=== PATIENT | female | born 1990 | race Caucasian/White ===

== ENCOUNTER 2018-03-19 13:14 | Inpatient (IN) | payer BC ==
[~2018-03-19 13:14] MED LIST: Buffered Lidocaine 0.9% SYRIN* 5 ML/SYR SYRINGE INTRADERM ONE; Dexamethasone IV* 4 MG/ML 1 ML (4 MG) ONE; DiMENhydriNATE IV* 50 MG/ML VIAL ONE; Famotidine IV* 10 MG/ML 2 ML (20 mg) IV ONE; Ketorolac INJ* 30 MG/ML 1 ML VIAL ONE; Lactated Ringers 1000 ML Bag* 1,000 ML IV SCH; Midazolam* 1 MG/ML 5 ML VIAL (5 MG) ONE; Ondansetron INJ* 2 MG/ML VIAL ONE; Propofol* 10 MG/ML 20 ML BTL ONE; Succinylcholine* 20 MG/ML 10 ML VIAL ONE; fentaNYL* 50 MCG/ML 2 ML VIAL (100 MCG VIAL) ONE
--- OUTSIDE RECORDS SUMMARY | 2018-03-19 13:20 | XMS REPORT | Continuity of Care Document ---
:1990 Author Organization [facility] Care Team Providers Name Role Phone NAZARIO CONCEPCION Admitting Physician NAZARIO CONCEPCION Attending Physician Allergies and Intolerances No Known Allergies Medications RxNorm Medication Dose Route Instructions Start End Status Date Date 815802 1 ML ustekinumab 90 mg subcutaneous subcutaneously Active 90 MG/ML every 3 months Prefilled Syringe 415255 atorvastatin 40 40 mg oral orally every day Active MG Oral Tablet 861260 Benazepril 10 mg oral orally every day Active hydrochloride 10 MG Oral Tablet 661804 clopidogrel 75 MG 75 mg oral orally every day Active Oral Tablet 6404 Linseed Oil 1000 mg oral orally every day Active metoprolol 6.25mg oral orally every day Active Vitamin E Oral 100 unit oral orally every day Active Problems Code Code System Problem Name Start Date End Date Status 382933239586945 SNOMED-CT Light tobacco smoker 01/07/2016 Completed 977859870 SNOMED-CT Right sided chest pain 01/07/2016 Active 887872910 SNOMED-CT Dizziness 01/07/2016 Active 556477876 SNOMED-CT Poor hypertension control 01/07/2016 Active 60064215 SNOMED-CT Elevated liver function 01/07/2016 Active 924474867 SNOMED-CT Morbid obesity 01/07/2016 Active 566634252 SNOMED-CT Acute coronary syndrome 2015 Active 880354117 SNOMED-CT Stented coronary artery 2015 Active Stenting of RCA 2015 Active 23467493 SNOMED-CT Hypercholesterolemia 2014 Active Chronic elevation of right 2014 Active hemidiaphragm Major depression with self 2008 Active mutilation (cutting) 7459824 SNOMED-CT Psoriasis 1996 Active 24471644 SNOMED-CT Hypertensive disorder U Active 15576780 SNOMED-CT Benign hypertension U Active 009865028998022 SNOMED-CT Light tobacco smoker U Active 312473624 SNOMED-CT Plaque psoriasis U Active 037963719 SNOMED-CT Dyslipidemia U Active Procedures Code Code System Procedure Date 175604227 SNOMED CT Tonsillectomy (Tonsillectomy) 2001 STENT 02/2015 Results Microbiology Results w Susceptibilities Order: CULTURE WOUND- TISSUE-DRAINAGE Specimen Source: Abscess Body Site: Entire back (surface region)Direct Exam:Rare [id number] Gram positive cocci in [id number] Observations:MRSA screen test [id number] #1:1Staphylococcus aureus MRSA (Many)Susceptibility: LOINC Code Drug Interpretation Result Date 383-0 1Oxacillin R >=4 02/28/2018 12:40:00 PM 233-7 1Erythromycin R >=8 02/28/2018 12:40:00 PM 193-3 1Clindamycin SS <=0.25 02/28/2018 12:40:00 PM 524-9 1Vancomycin SS 1 02/28/2018 12:40:00 PM 496-0 1Tetracycline SS <=1 02/28/2018 12:40:00 PM 428-3 1Rifampicin SS <=0.5 02/28/2018 12:40:00 PM 516-5 1Trimethoprim/Sulfa SS <=10 02/28/2018 12:40:00 methoxazole PM Notes: 1If rifampin is used for treatment it must be combined with another antibiotic. 1Resistance develops rapidly when used alone. Please consult with Pharmacy for 1treatment options. 1Organisms that are susceptible to tetracycline are also susceptible to 1doxycycline and minocycline. Performing Lab Footnotes:[facility] - [id number] - [address] [place] [address] MAHENDRA REYEZ Social History Code Code System Social History Description Dates Observed Observation 307459052 SNOMED CT Current Smoking Unknown if ever Status smoked UNK AdministrativeGender Sex Assigned At Unknown Vital Signs No data in the system Goals Section No data in the system Health Concerns No data in the systemEncounter Diagnosis Date Code Code System Diagnosis Status L02.222 ICD10 FURUNCLE BACK ANY PRT EXCPT BUTTOCK Active Advance Directives PT STATES NO ADVANCE DIRECTIVES Directive Type Effective Date Software Systems Engineer Notes Supporting Document Name Address Phone No Directive Type 01/07/2016 Not Specified Not Specified Not Specified None No specified 10:11:15 PM *RHIO - CONSENT IS YES Directive Type Effective Date Software Systems Engineer Notes Supporting Document Name Address Phone No Directive Type 01/27/2015 Not Specified Not Specified Not Specified None No specified 10:47:37 AM Family History Patient has no knowledge of family history Functional Status No data in the system Immunizations Vaccine Code Code System Vaccine Name Date Status 150 CVX Influenza, injectable, 01/08/2016 Not given (patient quadrivalent, preservative objection) free Medical Equipment Implants Implanted Date Implant Site DEMETRA 02/15/2015 stent placement heart Mental Status No data in the system Assessment and Plan Assessments No data in the systemPlan Of Treatment No data in the systemPending Tests No data in the system Hospital Discharge Instructions No data in the system Reason for Visit No data in the system
--- OUTSIDE RECORDS SUMMARY | 2018-03-19 13:20 | XMS REPORT | Continuity of Care Document ---
:1990 External Reference #:[id number] Author Name RYDER Bales Address [address] [place] [address], [address] [place] [address] Care Team Providers Name Role Phone Fan Davis M.D. Care Team Information Block Cuber Unavailable Payers Type Date Identification Numbers Payment Provider Subscriber Policy Number: [id number] [facility] Marizol Richard PayID: [id number] [address] [address] [place] [address] Effective: 2015 Policy Number: [id number] [facility] Marizol Richard Expires: 2017 PayID: [id number] [address] [place] [address] Effective: 2004 Policy Number: [id number] [place] Plan Willy Hilary Expires: 2015 PayID: [id number] [address] [place] [address] Advance Directives Description No Information Available Problems Date Description Provider Status Onset: 03/07/2010 Benign essential hypertension Fan Davis M.D. Active Onset: 03/07/2010 Mixed hyperlipidemia Fan Davis M.D. Active Onset: 02/26/2018 Carbuncle of trunk RYDER Bales Active Onset: 01/24/2015 Essential hypertension Fan Davis M.D. Active Family History Date Family Member(s) Problem(s) Comments Father Coronary Artery Disease (CAD) Father Elevated Liver Enzymes Father defibrillator Mother Hypothyroidism Mother Non Insulin Dependent Diabetes Mother Caleb First Brother Hypercholesterolemia First Brother Asthma Social History Type Date Description Comments Sex Unknown Lives With mother and father Occupation cafeteria cashier/student Tobacco Use Start: Unknown Never Smoked Cigarettes ETOH Use Denies alcohol use Recreational Drug Use Denies Drug Use Tobacco Use Start: Unknown End: Unknown Patient is a former smoker Smoking Status Reviewed: 02/26/18 Patient is a former smoker Allergies, Adverse Reactions, Alerts Description No Known Drug Allergies Medications Medication Date Status Form Strength Qnty SIG Indications Ordering Provider Nitroglycerin 12/02 Active Tablets 0.4mg 25tabs 1 Sub sublingual Cristian, q5mins as RN, [employer] needed Clindamycin HCL 12/02 Active Capsules 300mg 30caps 1 by mouth L02.222 3 times Wood, ANP per day x 10 days Hydrochlorothiazi 05/04 Active Tablets 25mg 30tabs 1 by mouth R60.0 every day yakelin Davis M.D. swelling Vitamin E Active Unknown Flax Seed Oil Active Unknown Stelara Active Soln Lad[place], Prefill Lavell Schmidt M.D. Benazepril HCL Active Tablets 20mg 30tabs 1 by mouth I10 every day KEISHA Foster, [employer] Aspir-81 Active Tablets 81mg [address] every day Metoprolol Active Tablets 25mg take one Unknown Tartrate half tablet by mouth once a day Prednisone 05/11 Hx Tablets 50mg 5tabs take one M79.672 Toby tablet by C. - mouth once rvey, 05/17 daily for 5 days Prednisone 09/29 Hx Tablets 20mg 10tabs 2 by mouth M65.271 every day Cristian, - x 5days RN, [employer] 03/06 take the morning Benzonatate 09/12 Hx Capsules 100mg 45caps 1 by mouth J06.9 three Davis, - times a M.D. 03/06 day needed cough Azithromycin 01/27 Hx Tablets 250mg 6tabs 2 tabs by J20.9 mouth on Davis, - day 1, M.D. 03/16 then 1 by /2014 mouth everyday on days 2-5 Dulera 01/27 Hx Aerosol 100-5mcg/ sample use 2 J20.9 Act inhalation Ryan, - s orally M.D. 03/16 twice daily Hydromet 01/21 Hx Syrup 5-1.5mg/5 120unit 1 tsp. at R05 Yarely ML s bedtime as Chekastephenky - needed for , [employer] 03/16 cough ref. /2014 #[id number] Atorvastatin 05/17 Hx Tablets 40mg 90tabs 1 by mouth E78.2 Fan Calcium /2014 every day Ori Davis M.D. 05/04 Azithromycin 05/17 Hx Tablets 250mg 6tabs 2 tabs by 461.9 mouth on Ryan, - day 1Jaret 01/21 then 1 by mouth everyday on days 2-5 Atorvastatin 03/09 Hx Tablets 80mg 30tabs 1 by mouth 272.2 Felicitas Calcium /2013 every day Kuhfta, - at bedtime RN [facility] 05/17 Benazepril HCL 02/04 Hx Tablets 5mg 90tabs 1 by mouth I10 every day Ori Davis M.D. 03/16 Azithromycin 02/20 Hx Tablets 250mg 6tabs 2 tabs po 466.0 Fan on day 1, Ori Davis 1 po M.DDc 03/07 qday days 2-5 Benazepril HCL 02/20 Hx Tablets 20mg 30tabs 1 po qd 401.1 Fan Ori Davis M.D. 02/04 Amlodipine 02/20 Hx Tablets 5mg 30tabs 1 po qd 401.1 Fan Ori Davis M.D. 02/04 Ciprofloxacin HCL 10/19 Hx Tablets 500mg 6tabs 1 po bid 599.0 Fan Ori Davis M.D. 11/17 Amoxicillin 05/13 Hx Tablets 875mg 20tabs 1 po bid 461.9 Donald Watts Ori Montenegro M.D. 05/23 Ursodiol 02/06 Hx Capsules 300mg 60caps 1 po bid Afn Ori Davis M.D. 05/13 Clopidogrel 00 Hx Tablets 75mg 1 by mouth Unknown Bisulfate /0000 every day - 05/04 Nitrostat 00 Hx Tablets 0.4mg 1 Unknown /0000 Sub sublingual - q5mins as 12/02 Immunizations CPT Code Status Date Vaccine Lot # [id number] Given 06/19/2017 Flucelvax Quad, 0.5mL, [facility] [id number] Q2037 Given 03/06/2016 Fluvirin 0.5 ML,[facility] 12815-419-40 [id number] Vital Signs Date Vital Result Comment 02/26/2018 1:13pm Weight 267.00 lb BP Systolic 140 mmHg BP Diastolic 88 mmHg Heart Rate 76 /min 12/03/2017 12:16pm Weight 261.44 lb BP Systolic 130 mmHg BP Diastolic 88 mmHg Body Temperature 99.2 F Heart Rate 84 /min 12/02/2017 2:47pm Weight 262.00 lb BP Systolic 192 mmHg BP Diastolic 110 mmHg BP Systolic Recheck 160 mmHg BP Diastolic Recheck 100 mmHg Body Temperature 98.8 F Heart Rate 76 /min Respiratory Rate 18 /min 08/10/2016 9:19am BP Systolic 148 mmHg BP Diastolic 88 mmHg Heart Rate 76 /min Pain Level 8 08/01/2016 1:34pm BP Systolic 170 mmHg BP Diastolic 100 mmHg Heart Rate 60 /min Pain Level 8 05/18/2016 9:47am Weight 280.00 lb Height 66.5 inches 5'6.50" BP Systolic 138 mmHg BP Diastolic 78 mmHg Heart Rate 76 /min Respiratory Rate 18 /min BMI (Body Mass Index) 44.5 kg/m2 05/04/2016 2:20pm Weight 280.00 lb Height 66.5 inches 5'6.50" BP Systolic 160 mmHg BP Diastolic 100 mmHg Heart Rate 90 /min BMI (Body Mass Index) 44.5 kg/m2 03/06/2016 10:06am Weight 275.00 lb Height 66.5 inches 5'6.50" BP Systolic 122 mmHg BP Diastolic 80 mmHg Heart Rate 84 /min BMI (Body Mass Index) 43.7 kg/m2 09/30/2015 1:40pm Weight 256.00 lb Height 66.5 inches 5'6.50" BP Systolic 130 mmHg BP Diastolic 80 mmHg Body Temperature 97.9 F Heart Rate 70 /min O2 % BldC Oximetry 97 % Respiratory Rate 18 /min BMI (Body Mass Index) 40.7 kg/m2 09/13/2015 3:06pm Weight 253.00 lb Height 66.5 inches 5'6.50" BP Systolic 140 mmHg BP Diastolic 94 mmHg Heart Rate 104 /min O2 % BldC Oximetry 98 % BMI (Body Mass Index) 40.2 kg/m2 03/24/2015 10:16am Weight 250.00 lb Height 66.5 inches 5'6.50" BP Systolic 130 mmHg BP Diastolic 70 mmHg Heart Rate 76 /min BMI (Body Mass Index) 39.7 kg/m2 03/16/2015 10:32am Weight 251.50 lb Height 66.5 inches 5'6.50" BP Systolic 138 mmHg BP Diastolic 92 mmHg Body Temperature 98.0 F Heart Rate 99 /min O2 % BldC Oximetry 98 % Respiratory Rate 16 /min BMI (Body Mass Index) 40.0 kg/m2 01/27/2015 4:28pm Weight 255.00 lb Height 66.5 inches 5'6.50" BP Systolic 142 mmHg BP Diastolic 94 mmHg Body Temperature 98.0 F Heart Rate 84 /min O2 % BldC Oximetry 98 % Respiratory Rate 16 /min BMI (Body Mass Index) 40.5 kg/m2 01/21/2015 9:48am Weight 257.50 lb Height 66.5 inches 5'6.50" BP Systolic 152 mmHg BP Diastolic 94 mmHg Body Temperature 98.1 F Heart Rate 88 /min BMI (Body Mass Index) 40.9 kg/m2 05/17/2014 1:38pm Weight 251.00 lb Height 66.5 inches 5'6.50" BP Systolic 112 mmHg BP Diastolic 74 mmHg Body Temperature 98.8 F Heart Rate 70 /min BMI (Body Mass Index) 39.9 kg/m2 03/09/2014 9:27am Weight 252.00 lb Height 66.5 inches 5'6.50" BP Systolic 154 mmHg BP Diastolic 90 mmHg BP Systolic Recheck 140 mmHg BP Diastolic Recheck 82 mmHg Heart Rate 76 /min BMI (Body Mass Index) 40.1 kg/m2 02/04/2014 1:47pm Weight 254.00 lb Height 66.5 inches 5'6.50" BP Systolic 138 mmHg BP Diastolic 82 mmHg Heart Rate 84 /min BMI (Body Mass Index) 40.4 kg/m2 03/07/2010 1:05pm Weight 234.50 lb Height 66.5 inches 5'6.50" BP Systolic 122 mmHg BP Diastolic 84 mmHg Heart Rate 68 /min BMI (Body Mass Index) 37.3 kg/m2 02/20/2010 2:20pm Weight 236.00 lb BP Systolic 170 mmHg BP Diastolic 110 mmHg Body Temperature 98.1 F Heart Rate 80 /min 10/19/2009 1:31pm Weight 230.50 lb BP Systolic 132 mmHg BP Diastolic 90 mmHg Heart Rate 68 /min 05/13/2009 3:23pm Weight 246.00 lb BP Systolic 160 mmHg BP Diastolic 104 mmHg Body Temperature 98.5 F Heart Rate 80 /min 02/04/2009 3:15pm Weight 237.25 lb Height 66.5 inches 5'6.50" BP Systolic 154 mmHg BP Diastolic 90 mmHg Heart Rate 64 /min BMI (Body Mass Index) 37.7 kg/m2 Results Test Date Facility Test Result H/L Range Note Muna 08/10/2016 [facility] Muna NEGATIVE Negative [address] [place] [address] [phone] Muna Methodology Test Substrate: <SEE NOTE> 1 Rheumatoid 08/10/2016 [facility] Rheumatoid NEGATIVE Negative [facility] [address] [place] [address] [place] [address] [phone] RF Methodology Methodology: Lat <SEE NOTE> 2 Laboratory test 08/10/2016 [facility] Sedrate Esr 10.0 mm/hr 0.0-20.0 finding [address] [place] [address] [phone] Uric Acid 5.8 mg/dL 2.6-7.2 03/06/2016 [facility] Serum NEGATIVE Test-Serum [address] [facility] Test [place], [place] [id number] [phone] Pregs Methodology Detection Level: <SEE NOTE> 3 Thy (TSH And Free 03/06/2016 [facility] TSH 3.54 uIU/mL 0.34-4.82 T4) [address] [place] [address] [phone] T4 - Free 0.85 ng/dL 0.77-1.60 Laboratory test 02/08/2014 [facility] eGFR (Female) 111 > 59 4 finding [address] [id number] [phone] Comp. Metabolic 02/08/2014 [facility] Glucose 97.5 mg/dL 65 -[address] [address] [phone] BUN 9.5 mg/dL 7-21 Co2 28.0 mmol/L 22-30 Sodium 141 mmol/L 137-145 Potassium 4.2 mmol/L 3.6-5.2 Chloride 104 mmol/L 98-110 Calcium 9.4 mg/dL 9-10.5 Creatinine 0.69 mg/dL 0.52-1.25 Total Protein 7.09 g/dL 6.3-8.2 Albumin 3.93 g/dL 3.3-4.50 Sgot (Ast) 36.0 U/L 5-40 Alk Phosphatase 48.0 U/L 38-126 Total Bilirubin 0.75 mg/dL 0.2-1.3 SGPT (Alt) 59.0 U/L High 7-56 Anion Gap (Calc) 9.0 7-16 BUN/Crea Ratio 13.8 Ratio 7-25 Globulin (Calc) 3.16 g/dL 2.3-3.5 A/G Ratio (Calc) 1.2 Ratio 1.1-2.2 Lipid Studies 02/08/2014 [facility] Triglycerides 162 mg/dL High 0-149 [address] [facility] [address] [place], [place] [id number] [phone] Cholesterol 301 mg/dL High 120-200 HDL Cholesterol 40.0 mg/dL 40-60 VLDL (Calc.) 32 mg/dL High <31 Cholesterol/HDL 7.53 Ratio High <5.00 LDL (Calc.) 229 mg/dL High 0-99 5 LP (Lipid) 11/07/2009 [facility] Cholesterol 247 mg/dL High 120-200 [address] [place] [address] [phone] Triglycerides 171 mg/dL High 0-149 High Density Lipoprotein 38 mg/dL Low 40-60 Chol/HDL Ratio 6.5 Chol/HDL Reference Cholesterol/HDL <SEE NOTE> 6 LDL Direct 195 mg/dL High 0-99 Very Low Density Lipoprotein 34 Culture Urine 10/19/2009 [facility] Culture Mixed growth 7 [address] [facility] Observations con <[place] [address] NOTE> [phone] Isolate 1 Escherichia coli 8 Culture Observations MRSA screen test <SEE NOTE> 9 Esbl Neg - Ampicillin <=2 S Cefazolin <=4 S Gentamicin <=1 S Ciprofloxacin <=0.25 S Levofloxacin <=0.12 S Nitrofurantoin 64 I Trimethoprim/Sulfamethoxazole 40 S 1 Test Substrate: Human Epithelial (HEp-2) Cells Methodology: Indirect Fluorescent Antibody Test 2 Methodology: Latex Agglutination 3 Detection Level: >=10 mIU/mL 4 Units expressed as mL/min/1.73m^2 5 LDL(Calc.) invalid if triglycerides >400. 6 Cholesterol/HDL Ratio Interpretation Risk : 1/2 Avg Avg 2x Avg 3x Avg Male : 3.43 4.97 9.50 23.99 Female : 3.27 4.44 7.05 11.04 7 Mixed growth consistent with vaginal halima present 8 Escherichia coli 9 MRSA screen test negative Procedures Date Code Description Status 12/03/2017 45333 I & D Of Abscess/Cyst Completed 08/10/2016 71676 Ultrasound Guide For Needle Aspiration/Inj/Biopsy Completed 08/10/2016 47032 Inject Tendon/Sheath/Ligament Aponeurosis Completed (eg:plantar,fascia) 06/01/2016 53493 Ultrasound Guide For Needle Aspiration/Inj/Biopsy Completed 06/01/2016 44631 Inject Tendon/Sheath/Ligament Aponeurosis Completed (eg:plantar,fascia) 03/16/2015 79383 EKG - In Office Completed Encounters Type Date Location Provider Dx Diagnosis Office Visit 02/26/2018 Main Office RYDER Bales L02.222 Furuncle of back 1:00p [any part, except buttock] Office Visit 12/02/2017 Main Office Felicitas Foster RN, L72.3 Sebaceous cyst 2:40p [employer] L03.312 Cellulitis of back [any part except buttock] E66.01 Morbid (severe) obesity due to excess calories I10 Essential (primary) hypertension Office Visit 08/01/2016 1:30p Main Office Ger Wheatley.671 Pain in right DO foot M76.61 Achilles tendinitis, right leg M79.672 Pain in left foot M76.62 Achilles tendinitis, left leg Office Visit 05/25/2016 11:30a Main Office Ger Wheatley.672 Pain in left DO foot M76.62 Achilles tendinitis, left leg Office Visit 05/18/2016 9:45a Main Office Gary Avalos72.2 Plantar fascial M.D. fibromatosis M76.62 Achilles tendinitis, left leg Office Visit 05/11/2016 10:00a Main Office Toby AnneDc Liloadalirose, M79.672 Pain in left DO foot M76.62 Achilles tendinitis, left leg Office Visit 05/04/2016 2:15p Main Office Fan Davis M.D. R60.0 Localized edema M25.572 Pain in left ankle and joints of left foot Office Visit 03/06/2016 10:00a Main Office Fan Davis, Z00.00 Encntr for Jaret general adult medical exam w/o abnormal findings I25.10 Athscl heart disease of [place] coronary artery w/o ang pctrs E78.2 Mixed hyperlipidemia I10 Essential (primary) hypertension L40.0 Psoriasis vulgaris G56.02 Carpal tunnel syndrome, left upper limb N91.2 Amenorrhea, unspecified Office Visit 09/30/2015 2:00p Main Office Felicitas Foster, M65.271 Calcific RN, [employer] tendinitis, right ankle and foot S86.899A Inj oth musc/tend at lower leg level, unsp leg, init Office Visit 09/13/2015 3:00p Main Office Fan Davis, I25.10 Athscl heart M.D. disease of [place] coronary artery w/o ang pctrs E78.2 Mixed hyperlipidemia J06.9 Acute upper respiratory infection, unspecified Office Visit 03/24/2015 9:45a Main Office Fan Davis I25.10 Athscl heart M.D. disease of [place] coronary artery w/o ang pctrs Office Visit 03/16/2015 10:30a Main Office Fan Davis I25.10 Athscl heart M.D. disease of [place] coronary artery w/o ang pctrs Office Visit 01/27/2015 4:15p Main Office Fan Davis J20.9 Acute bronchitis, M.D. unspecified Office Visit 01/21/2015 9:40a Main Office Yarely J06.9 Acute upper [place]ky, [employer] respiratory infection, unspecified R05 Cough Office Visit 05/17/2014 1:30p Main Office Fan Davis, 461.9 Sinusitis Acute M.D. Unspec Office Visit 03/09/2014 9:20a Main Office Felicitas Foster, KEISHA V70.0 Examination General [employer] Medical Routine AT Health Care Facility 401.1 Hypertension Benign 272.2 Hyperlipidemia Mixed 696.1 Psoriasis Other 305.1 Tobacco Use Disorder 278.02 Overweight V76.2 Screening Malignant Neoplasm Cervix Office Visit 02/04/2014 1:40p Main Office Felicitas Foster, 401.1 Hypertension Benign RN [employer] 696.1 Psoriasis Other 272.2 Hyperlipidemia Mixed 305.1 Tobacco Use Disorder 278.02 Overweight V76.2 Screening Malignant Neoplasm Cervix V70.0 Examination General Medical Routine AT Health Care Facility Office Visit 03/07/2010 1:15p Main Office Fan Davis, 401.1 Hypertension Benign M.D. 272.2 Hyperlipidemia Mixed Office Visit 02/20/2010 2:15p Main Office Fan Davis M.D. 466.0 Bronchitis Acute 401.1 Hypertension Benign Office Visit 10/19/2009 1:15p Main Office Fan Davis, 599.0 UTI Urinary Tract M.D. Infection Site Not Spec Office Visit 05/13/2009 3:30p Main Office Donald Montenegro, 461.9 Sinusitis Acute M.D. Unspec Office Visit 02/04/2009 3:00p Main Office Fan Davis, 794.8 Liver Study M.D. Abnormal 311 Depressive Disorder Not Elsewhere Spec 696.1 Psoriasis Other Plan of Treatment Future Appointment(s):06/02/2018 3:30 pm - Fan Davis M.D. at [id number] - Awa Morales, ANPL02.222 Furuncle of back [any part, except buttock] Follow up:June 02, 2018 for regularly scheduled follow up visit
[2018-03-19] MEDS ORDERED: Heparin VIAL(*) 5000 UNITS/ML VIAL (FIVE THOUSAND) ONE (13:31)
[2018-03-19] MEDS ORDERED: Famotidine IV* 10 MG/ML 2 ML (20 mg) ONE (13:31)
[2018-03-19] MEDS ORDERED: ceFAZolin 2 GM PREMIX in ORs 2 GM/50 ML BAG IVPB ONE (13:32)
[2018-03-19] MEDS ORDERED: Methylene Blue 0.5 %* 50 MG/10 ML AMP IV ONE (13:32)
[2018-03-19] MEDS ORDERED: Bupivacaine 0.25% EPI 200,000* 30 ML SDV ONE ×2 (13:32→14:12)
[2018-03-19] MEDS ORDERED: Acetaminophen IV 1GM/100ML * 1,000 MG/100 ML VIAL IVPB ONE (13:38)
[2018-03-19] MEDS ORDERED: Naloxone* 0.4 MG/ML 1 ML VIAL IV PRN (13:38)
[2018-03-19] MEDS ORDERED: DiMENhydriNATE IV* 50 MG/ML VIAL IV PUSH PRN (13:38)
[2018-03-19] MEDS ORDERED: ceFAZolin 1 GM ADVAN(*) 1 GM ADDV.VIAL IVPB ONE (13:45)
[2018-03-19] MEDS ORDERED: fentaNYL* 50 MCG/ML 2 ML VIAL (100 MCG VIAL) ONE (14:30)
[2018-03-19] MEDS ORDERED: Scopolamine 1.5 mg* PATCH ONE (14:48)
[2018-03-19] MEDS ORDERED: HYDROmorphone INJ1* 1 MG/ML SYRINGE ONE ×2 (16:16→17:27)
[2018-03-19] MEDS ORDERED: Propofol* 10 MG/ML 20 ML BTL ONE (17:02)
--- NOTE | 2018-03-19 17:08 | BRIEFOPN ---
Brief Operative Note - Surgery Procedures: Pre-OP Diagnoses: Clinically severe obesity Post-op Diagnosis: same Procedure: Laparoscopic Tone an Y gastric bypass Surgeon: Cherelle Asst: Dashawn Anethesia: DANA EBL: minimal IVF: 1600cc LR Specimen: none Drains: none
[2018-03-19] MEDS ORDERED: Acetaminophen IV 1GM/100ML * 100 ML ONE (17:27)
[2018-03-19] MEDS ORDERED: DiMENhydriNATE IV* 50 MG/ML VIAL ONE (17:27)
[2018-03-19] MEDS ORDERED: HYDROmorphone INJ* 0.5 MG/0.5 ML SYRINGE IV PRN (17:55)
[2018-03-19] MEDS ORDERED: Ondansetron INJ* 2 MG/ML VIAL IV PRN (17:55)
[2018-03-19] MEDS ORDERED: HYDROmorphone INJ1* 1 MG/ML SYRINGE IV PRN (17:55)
[2018-03-19] MEDS ORDERED: Acetaminophen ADULT LIQ* 650 MG/20.3 ML UDC PO PRN (17:55)
[2018-03-19] MEDS: HYDROmorphone INJ1* 1 MG/ML SYRINGE IV PRN ×2 (17:57→18:20)
[2018-03-19] MEDS ORDERED: Metoprolol Tartrate IV* 1 MG/ML 5 ML VIAL IV PRN (18:03)
[2018-03-19] MEDS: Lactated Ringers 1000 ML Bag* 1,000 ML IV SCH (19:00)
[2018-03-19] MEDS: Ketorolac INJ* 30 MG/ML 1 ML VIAL IV PRN (21:43)
[2018-03-19] MEDS: Heparin VIAL(*) 5000 UNITS/ML VIAL (FIVE THOUSAND) SUBCUT SCH (21:45)
[2018-03-19] MEDS: Famotidine IV* 10 MG/ML 2 ML (20 mg) IV SLOW PU SCH (21:46)
--- NOTE | 2018-03-19 23:33 | OP ---
CC: Dr. Fan Davis; [facility] * DATE OF OPERATION: 03/19/18 - ROOM #353 DATE OF : 88 SURGEON: Fan Villarreal MD. CHARGING PLUG PLACER: CHAUNCEY Troncoso. ANESTHESIOLOGIST: Dr. Wadsworth. ANESTHESIA: General anesthesia. PRE-OP DIAGNOSIS: Clinically severe obesity. POST-OP DIAGNOSIS: Clinically severe obesity. OPERATIVE PROCEDURE: Laparoscopic Tone-en-Y gastric bypass. ESTIMATED BLOOD LOSS: Minimal. IV FLUIDS: 1600 cc of crystalloid fluid given. SPECIMEN: None. DRAINS: None. COUNTS: Lap pad count and instrument count correct at the end of the procedure. CONDITION: The patient transferred to the PACU in stable condition. DESCRIPTION OF PROCEDURE: The patient was identified in the preoperative area, case discussed, and consent signed. She was marked and brought to the operating room, placed on the operating table in the supine position. Preoperative antibiotics were given. Sequential devices were placed on bilateral lower extremities and general anesthesia was induced. The patient's abdomen was prepped and draped in the standard surgical fashion and a time-out was performed. Folds of the umbilicus were elevated anteriorly and a Veress needle inserted into the abdominal cavity, which was then allowed to insufflate to a pressure of 15 mmHg. Carson between the xiphoid and the umbilicus, a 12 mm trocar non- bladed was inserted. Laparoscope was inserted through this. There was no evidence of injury from the trocar insertion. We did use this in an Optiview fashion. Veress needle was identified and removed. It showed no evidence of injury to intra-abdominal organs. Additional trocars were than placed in the following positions: A 5 mm and 12 mm in the right upper quadrant and a 5 mm and 12 mm in the left upper quadrant. Review of the abdomen showed normal-appearing bowel, the liver was somewhat bulky. We then placed a Roque retractor through a subxiphoid incision and retracted the liver anteriorly into the right. This exposed the gastroesophageal fat pad, which was grasped and retracted towards the right lower quadrant. With blunt and sharp dissection, we were able to expose the left leo. Next, a retrogastric tunnel was made at approximately the third gastric vessel on the lesser curvature. We took this vessel with a LigaSure device. We made a window and fired 45 mm rojas CHINTAN stapling device across this. We completed the gastric pouch with 2 additional 60 mm rojas CHINTAN stapling devices and utilized a 45 mm for the very small 0.5 cm segment that did remain. The pouch appeared appropriate size. We then had the anesthesiologist place an Brayden tube through the oropharynx into the distal stomach pouch. Again, it appeared appropriate size. Hemostasis was excellent. Attention was then turned towards the ligament of Treitz and in a standard fashion, we identified this in the appropriate way and counted off approximately 45 cm. This was then brought up to the gastric pouch where it was sutured. We had made a window through the mesentery so that we can grasp this and bring it up to the upper abdomen. It laid without tension and we sutured it to the lateral portion of the stomach pouch with 2-0 silk sutures. Next, a gastrotomy was made over the Brayden tube and an enterotomy was made, both with a LigaSure device, cautery portion of this and then we mated the two in the standard fashion with a 30 mm rojas CHINTAN stapling device. The anastomosis appeared wide open and intact. We utilized almost the entire 30 mm CHINTAN stapling device. Next, we reapproximated the defect with interrupted 3-0 PDS suture starting superiorly and inferiorly and tying them in the middle. This was a running stitch and we then next transected the small bowel where we had already made a window. It appeared to be in the appropriate positioning, not too far or not too close from the gastrojejunostomy. Next, the gastrojejunostomy was tested with the placement of the Brayden tube through the anastomosis and this passed with ease. We then clamped the distal bowel and performed a methylene blue dye test in the standard fashion. This was a negative test and the Brayden tube was removed after suctioning out blue dye by the anesthesiologist through the tube. Review of the posterior and anterior aspect showed that there was no evidence of blue dye. We then put a single silk suture at the superior aspect of the suture edge to sew this up and imbricate the proximal suture line. Next, we counted off approximately 90 cm from the Tone limb. This would become the jejunojejunostomy. This was brought in apposition to the biliopancreatic limb. Enterotomies were made in the standard fashion and the two were mated with a 60 mm rojas CHINTAN stapling device. I did place this opening on the biliopancreatic limb somewhat close to the mesentery and with some manipulation , we created fairly large common defect. The anastomosis was widely patent and we reapproximated the defect of the small bowel with two-layer 3-0 PDS suture in a running fashion as well as imbricated 2-0 silk sutures. The mesenteric defect was closed with additional 2-0 silk sutures. Review of the abdomen showed that the hemostasis was excellent. The gastrojejunostomy was in the appropriate fashion as well as the jejunojejunostomy. The Roque retractor was removed and the abdomen was allowed to collapse. Trocars were removed under direct vision and all skin incisions were reapproximated with 4-0 Monocryl subcuticular sutures followed by Steri-Strips and sterile dressing. The patient tolerated the procedure well and was transferred to the PACU in stable condition. [id number]/[facility] #: [id number] BABITA
[2018-03-20] MEDS: Lactated Ringers 1000 ML Bag* 1,000 ML IV SCH ×3 (01:20→16:16)
[2018-03-20] MEDS: Heparin VIAL(*) 5000 UNITS/ML VIAL (FIVE THOUSAND) SUBCUT SCH ×3 (05:38→22:51)
[2018-03-20] MEDS: Ketorolac INJ* 30 MG/ML 1 ML VIAL IV PRN ×2 (05:39→11:43)
--- NOTE | 2018-03-20 09:15 | PN ---
Progress Note - Progress Note Date of Service: 03/20/18 SOAP: Subjective: Pt seen and examined. Pt c/o L sided abdo pain. some burping, no nausea, no flatus Objective: Temp Pulse Resp BP Pulse Ox 98.7 F 46 18 141/82 98 03/20/18 07:20 03/20/18 07:20 03/20/18 07:31 03/20/18 07:20 03/20/18 07:31 Intake & Output 03/19/18 03/20/18 03/20/18 22:59 06:59 14:59 Intake Total 1600 980 Output Total 100 600 300 Balance 1500 380 -300 a and ox3, nad lungs clear abdo: soft/ ND/ tender at LUQ no rebound dressing intact no calf tenderness UGi P Assessment: POD 1 rygb Plan: advnce diet pain control likely d/c tomorrow
[2018-03-20] MEDS: Famotidine IV* 10 MG/ML 2 ML (20 mg) IV SLOW PU SCH ×2 (09:26→22:51)
--- NOTE | 2018-03-20 13:51 | PN ---
Progress Note - Progress Note Date of Service: 03/20/18 SOAP: Subjective: []Marizol is post operative day 1 after a Tone en Y gastric bypass. She reports no nausea, or vomiting but does complain of "burping alot". She reports being in a 4 out of 10 pain throughout her left abdomen. She reports waking up last night from exquisite pain in her left abdomen which was relieved with PRN pain medication. She states she is comfortable at this time. She denies flatus or bowel movements at this time but states she is "peeing alot". She began a liquid diet this morning after being seen by Dr. Villarreal and having an unremarkable upper GI swallow series. She states she is doing well with it and is following nursing instructions to "take a few sips every 15 minutes". She does not have any bloating or nausea since beginning liquids. She states she was able to "get up and walk a few laps around the unit" but had to stop due to her abdominal pain. She is also being diligent with use of her incentive spirometer. She currently has many visitors and is quite pleasant. She is looking forward to the possibility of being discharged tomorrow. She admits to 4 /10 left abdominal pain, and burping. She denies any feeling of warmth or being cold, nausea, vomiting, headache, chest pain, SOB, calf pain or tenderness, no flatus at this time. Objective: [] General: Marizol is a pleasant female who is alert and oriented to person, place, and time. Marizol is in good spirits today and is restign comfortably on her hospital bed. Eyes: Pupils are equal, round and reactive to light and accommodation, bilaterally. Heart: visualization reveals no lifts or heaves. Palpation reveals no lifts, heaves or thrills. Auscultation reveals a normal S1 and S2 with no murmur, rubs or gallops. Lungs: No signs of pectus caranatum or pectus excavatum. Pt is not in acute respiratory distress or using any accessory muscles to breath. Lungs are clear to auscultation throughout all lung bernabe. Abdomen: Inspection of the abdomen reveals no signs of ecchymosis or protrusion. Abdomen is not distended. Palpation reveals tenderness in the upper and lower left abdomen. Auscultation reveals no bowel sounds at this time. Surgical dressings are clean, fairly dry and intact. Surgical dressings reveal no excessive drainage, discoloration or signs of infection. Lower Extremities: Legs appear to have no atrophic changes or discoloration. No signs of trauma. Skin is warm to touch and pulses are 2+ at the dorsalis pedis, bilaterally. Sensation to touch is intact bilaterally. No tenderness to palpation of calfs. Assessment: [] Post operative day 1 for Tone en Y gastric bypass Plan: [] -Advance diet as tolerated -Continue pain control -Likely discharge tomorrow (03-21-18) per Dr. Villarreal
[2018-03-20] MEDS: D5W 1/2 NS KCl 20 Meq 1000 ML* 1,000 ML IV SCH (18:16)
[2018-03-20] MEDS: HYDROcodone/ACET. 7.5/325 LIQ* 15 ML UDC PO PRN (19:37)
[2018-03-21] MEDS: D5W 1/2 NS KCl 20 Meq 1000 ML* 1,000 ML IV SCH (02:14)
[2018-03-21] MEDS: HYDROcodone/ACET. 7.5/325 LIQ* 15 ML UDC PO PRN ×3 (02:29→15:11)
[2018-03-21] MEDS: Heparin VIAL(*) 5000 UNITS/ML VIAL (FIVE THOUSAND) SUBCUT SCH ×2 (06:26→15:13)
[2018-03-21 09:11] VITALS: BP 142/87
[2018-03-21] MEDS: Famotidine IV* 10 MG/ML 2 ML (20 mg) IV SLOW PU SCH (09:14)
--- NOTE | 2018-03-21 20:01 | DS ---
CC: Dr. Fan Davis; Dr. Fan Villarreal; [facility] DISCHARGE SUMMARY: DATE OF ADMISSION: DATE OF DISCHARGE: 03/21/18 HOSPITAL COURSE: Ms. Richard is a 27-year-old female, who suffers with clinically severe obesity, wa s worked up as an outpatient and presented on same day of surgery 03/19/18 and underwent a laparoscop ic Tone-en-Y gastric bypass procedure. Please see operative report for details. Procedure was uneventful and the patient was transferred to the PACU and onto the short-stay surgical unit. On postoperative day 1, the patient was seen and evaluated by me. She underwent an upper GI study, w hich was within normal limits and the patient was started on a bariatric clear diet. By postoperative day 3, the patient was improving with regards to her pain profile. She was able to a mbulate. She was tolerating liquids. PHYSICAL EXAMINATION: Physical exam was performed on day of discharge. She is afebrile. Vital sign s are stable. Alert and oriented x3, in no apparent distress. Head, Ears, Eyes, Nose, and Throat: N ormocephalic, atraumatic. Sclerae anicteric. Mucous membranes are moist. Lungs: Clear. Abdomen: Soft, obese, minimal tenderness at the incision sites. Dressings removed. Steri-Strips in place wit h some evidence of crusted blood, mild ecchymosis. No rebound tenderness. Extremities within normal limits. IMPRESSION: Postoperative day 2 Tone-en-Y gastric bypass. PLAN: Discharge home. The patient has a followup appointment with me next week early. She understa nds she can contact our office should there be any problems, any change in her status, fevers, worsen ing abdominal pain, and she will resume her medications with the elimination of aspirin and holding o ff on her FAWN inhibitor. She will continue with metoprolol. [id number]/[facility] #: [id number]
== END 2018-03-21 15:15 | disposition home or self-care (01) | DRG 403 ==
LOC: AA 13:14 → SSU 18:44
PROVIDERS: ADMIT Surgery; ATTEND Surgery
PROC: 0D164ZA Bypass Stomach to Jejunum, Percutaneous Endoscopic Approach (ICD-10-PCS; principal; 2018-03-19 14:45)
DX: E66.01 Morbid (severe) obesity due to excess calories (principal); Z68.41 Body mass index [BMI] 40.0-44.9, adult; G47.33 Obstructive sleep apnea (adult) (pediatric); I10 Essential (primary) hypertension; I25.10 Atherosclerotic heart disease of native coronary artery without angina pectoris; F41.9 Anxiety disorder, unspecified; E78.5 Hyperlipidemia, unspecified; K76.0 Fatty (change of) liver, not elsewhere classified; L40.9 Psoriasis, unspecified; F32.9 Major depressive disorder, single episode, unspecified; Z83.3 Family history of diabetes mellitus; I25.2 Old myocardial infarction; Z95.5 Presence of coronary angioplasty implant and graft; Z82.49 Family history of ischemic heart disease and other diseases of the circulatory system; Z80.8 Family history of malignant neoplasm of other organs or systems; Z83.49 Family history of other endocrine, nutritional and metabolic diseases; Z87.891 Personal history of nicotine dependence
CPT/HCPCS: 43644; 74246; 81025; A9270-GY; J0330; J0690; J1100; J1170; J1240; J1644; J1885; J2250; J2405; J2704; J3010

== ENCOUNTER → 2018-06-06 13:49 | Emergency (ER) | payer BC ==
[~2018-06-06 13:49] MED LIST changes: -Buffered Lidocaine 0.9% SYRIN* 5 ML/SYR SYRINGE INTRADERM ONE; -Dexamethasone IV* 4 MG/ML 1 ML (4 MG) ONE; -DiMENhydriNATE IV* 50 MG/ML VIAL ONE; -Famotidine IV* 10 MG/ML 2 ML (20 mg) IV ONE; +Folic Acid IV* 50 MG/10 ML VIAL ONE; -Ketorolac INJ* 30 MG/ML 1 ML VIAL ONE; -Lactated Ringers 1000 ML Bag* 1,000 ML IV SCH; -Midazolam* 1 MG/ML 5 ML VIAL (5 MG) ONE; +Multiple Vitamin IV ADULT* 10 ML VIAL ONE; +NS 0.9% 1000 ML** 1,000 ML IV ONE; +NS 0.9% 1000 ML** 1,000 ML ONE; -Ondansetron INJ* 2 MG/ML VIAL ONE; +Pantoprazole IV* 40 MG IV ONE; -Propofol* 10 MG/ML 20 ML BTL ONE; -Succinylcholine* 20 MG/ML 10 ML VIAL ONE; +Thiamine IV* 100 MG, Folic Acid IV* 1 MG, Multiple Vitamin IV ADULT* 10 ML in NS 0.9% 1... IV ONE; -fentaNYL* 50 MCG/ML 2 ML VIAL (100 MCG VIAL) ONE
[2018-06-06 15:54] LABS: ABS Basophils 0 10^3/ul (0-0.2); ABS Eosinophils 0.2 10^3/ul (0-0.6); ABS Lymphocytes 1.7 10^3/ul (1.0-4.8); ABS Monocytes 0.6 10^3/ul (0-0.8); ABS Nucleated RBC 0 10^3/ul; Eosinophil % 2.9 %; Hematocrit 41 % (33-41); Hemoglobin 13.8 g/dL (12.0-16.0); Lymphocyte % 22.8 %; Mean Corpuscular HGB Conc 34 g/dL (31-36); Mean Corpuscular Hemoglobin 29 pg (27-31); Mean Corpuscular Volume 86 fL (80-97); Mean Platelet Volume 9.4 fL (7.4-10.4); Nucleated Red Blood Cells % 0; Platelet Count 368 10^3/uL (150-450); Red Blood Count 4.75 10^6 /uL (3.70-4.87); Red Cell Distribution Width 14 % (10.5-15); White Blood Count 7.6 10^3/uL (3.5-10.8)
[2018-06-06 15:59] LABS: INR 1.21 (0.77-1.02)
[2018-06-06 16:11] LABS: HCG Pregnancy < 0.60 mIU/mL
[2018-06-06 16:17] LABS: ALT 18 U/L (7-52); AST 20 U/L (13-39); Albumin 4.4 g/dL (3.2-5.2); Albumin/Globulin Ratio 1.7 (1-3); Alkaline Phosphatase 47 U/L (34-104); Anion Gap 8 mmol/L (2-11); BUN/Creatinine Ratio 22.1 (8-20); Blood Urea Nitrogen 15 mg/dL (6-24); C Reactive Protein 1.59 mg/L (<8.01); CO2 Carbon Dioxide 28 mmol/L (22-32); Calcium 9.4 mg/dL (8.6-10.3); Chloride 103 mmol/L (101-111); EGFR African American 123.8 (>60); EGFR Non-African American 102.3 (>60); Globulin 2.6 g/dL (2-4); Glucose 83 mg/dL (70-100); Magnesium 2.2 mg/dL (1.9-2.7); Potassium 3.6 mmol/L (3.5-5.0); Sodium 139 mmol/L (135-145)
--- NOTE | 2018-06-06 16:20 | ED ---
Abdominal Pain/Female - HPI Summary HPI Summary: A 28 y/o female presents to [facility] with a chief complaint of abdominal pain since yesterday. The patient reports that she had gastric bypass surgery with Dr. Villarreal on 03/19/18. The patient reports that she felt hot and near syncopal at work because she has not been allowed to drink water. Yesterday she had sharp left sided abdominal pain. Anything that she eats that is dry aggravates her pain. At triage she rated her pain as a 2/10 in severity. 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 She says that she recently lost 54 pounds. - History of Current Complaint Chief Complaint: EDDiabeticProb Stated Complaint: I GOT HOT AND DIZZY PER PT Hx Obtained From: Patient Onset/Duration: Sudden Onset, Lasting Hours, Still Present Timing: Constant Severity Initially: Mild Severity Currently: Mild Pain Intensity: 2 Pain Scale Used: 0-10 Numeric Location: Diffuse - left sided Radiates: No Character: Other: - unable to describe Aggravating Factor(s): Food - dry food Alleviating Factor(s): Nothing Associated Signs and Symptoms: Positive: Other: - positive: near syncopal, hot. Negative: Fever Allergies/Adverse Reactions: Allergies Allergy/AdvReac Type Severity Reaction Status Date / Time menthol Allergy Severe REDNESS, Verified 06/06/18 13:58 [From Icy Hot Pain Relieving] BURNING PMH/Surg Hx/FS Hx/Imm Hx Cardiovascular History: Reports: Hx Angina, Hx Congestive Heart Failure, Hx Coronary Artery Disease, Hx Hypertension Respiratory History: Reports: Hx Sleep Apnea GI History: Denies: Other GI Disorders Musculoskeletal History: Reports: Hx Tendonitis - achilles tendon, Other Musculoskeletal History - plantar fascitis Sensory History: Denies: Hx Contacts or Glasses, Hx Hearing Aid Opthamlomology History: Denies: Hx Contacts or Glasses Psychiatric History: Reports: Hx Anxiety, Hx Depression - Cancer History Hx Chemotherapy: No - Surgical History Surgery Procedure, Year, and Place: stent placement for coronary blockage in right coronary artery, 2014, [facility] Hx Anesthesia Reactions: No Infectious Disease History: No Infectious Disease History: Reports: Hx of Known/Suspected MRSA - in cyst in back Denies: Traveled Outside the [place] in Last 30 Days - Family History Known Family History: Negative: Blood Disorder - Social History Alcohol Use: Occasionally Substance Use Type: Reports: None Hx Tobacco Use: No Smoking Status (MU): Former Smoker Amount Used/How Often: 1 pack per week Review of Systems Positive: Other - positive: feeling hot. Negative: Fever Positive: Abdominal Pain Neurological: Other - positive: near syncopal All Other Systems Reviewed And Are Negative: Yes Physical Exam - Summary Physical Exam Summary: GENERAL: Patient is a well-developed and nourished F who is lying comfortable in the stretcher. Patient is not in any acute respiratory distress. HEAD AND FACE: Normocephalic EYES: PERRLA, EOMI x 2. EARS: Hearing grossly intact. MOUTH: Oropharynx within normal limits. NECK: Supple, trachea is midline, no adenopathy, no JVD, no carotid bruit. CHEST: Symmetric, no tenderness at palpation LUNGS: Clear to auscultation bilaterally. No wheezing or crackles. CVS: Regular rate and rhythm, S1 and S2 present, no murmurs or gallops appreciated. ABDOMEN: TTP diffusely worse in epigastric and LUQ but no rebound or guarding. Bowel sounds are normal. No abdominal abnormal pulsations. EXTREMITIES: Full ROM in all major joints, no edema, no cyanosis or clubbing. NEURO: Alert and oriented x 3. No acute neurological deficits. Speech is normal and follows commands. SKIN: Dry and warm Triage Information Reviewed: Yes Vital Signs On Initial Exam: Initial Vitals Temp Pulse Resp BP Pulse Ox 98.1 F 64 16 147/107 100 06/06/18 13:52 06/06/18 13:52 06/06/18 13:52 06/06/18 13:52 06/06/18 13:52 Vital Signs Reviewed: Yes Diagnostics - Vital Signs Vital Signs Temp Pulse Resp BP Pulse Ox 06/06/18 13:52 98.1 F 64 16 147/107 100 - Laboratory Lab Results: Lab Results 06/06/18 06/06/18 Range/Units 15:33 15:33 WBC 7.6 (3.5-10.8) 10^3/uL RBC 4.75 (3.70-4.87) 10^6 /uL Hgb 13.8 (12.0-16.0) g/dL Hct 41 (33-41) % MCV 86 (80-97) fL MCH 29 (27-31) pg MCHC 34 (31-36) g/dL RDW 14 (10.5-15) % Plt Count 368 (150-450) 10^3/uL MPV 9.4 (7.4-10.4) fL Neut % (Auto) 66.6 % Lymph % (Auto) 22.8 % [place] % (Auto) 7.4 % Eos % (Auto) 2.9 % Baso % (Auto) 0.3 % Absolute Neuts (auto) 5.0 (1.5-7.7) 10^3/ul Absolute Lymphs (auto) 1.7 (1.0-4.8) 10^3/ul Absolute Monos (auto) 0.6 (0-0.8) 10^3/ul Absolute Eos (auto) 0.2 (0-0.6) 10^3/ul Absolute Basos (auto) 0 (0-0.2) 10^3/ul Absolute Nucleated RBC 0 10^3/ul Nucleated RBC % 0 INR (Anticoag Therapy) 1.21 H (0.77-1.02) Result Diagrams: 06/06/18 15:33 06/06/18 15:33 Lab Statement: Any lab studies that have been ordered have been reviewed, and results considered in the medical decision making process. - CT abdomen/pelvis CT Interpretation Completed By: Radiologist Summary of CT Findings: 1. Postsurgical findings are consistent with the patient 's reported history of gastric. bypass surgery. Within the limitations of a non -IV and nonoral contrast CT examination. that is not appear to be any acute abnormality related to the surgery. 2. Otherwise normal and age-appropriate CT examination as described above. ED physician has reviewed this imaging report. Re-Evaluation - Re-Evaluation First Eval Re-Evaluation Time: 17:31 Change: Improved Comment: Discussed results, patient is ready for discharge, Abdominal Pain Fem Course/Dx - Course Course Of Treatment: A 28 y/o female presents to [facility] with a chief complaint of abdominal pain since yesterday. The patient reports that she had gastric bypass surgery with Dr. Villarreal on 03/19/18. The physical exam revealed TTP diffusely worse in epigastric and LUQ but no rebound or guarding. Abdomen/ pelvis CT impression: 1. Postsurgical findings are consistent with the patient' s reported history of gastric. bypass surgery. Within the limitations of a non- IV and nonoral contrast CT examination. that is not appear to be any acute abnormality related to the surgery. 2. Otherwise normal and age-appropriate CT examination as described above. Bloodwork and chemistries obtained and are WNL. In the ED course the patient was given Protonix IV, Folvite IV and sodium chloride IV. Case discussed with Dr. Hackett, who recommended follow up at the bariatric clinic. I discussed results with patient and she reports feeling better. She is hemodynamically stable and safe for discharge. Strict return precautions given and she will otherwise follow up with her PCP - Diagnoses Provider Diagnoses: Abdominal pain - Provider Notifications Discussed Care Of Patient With: Donald Hackett Time Discussed With Above Provider: 17:22 Instructed by Provider To: Other - follow up with bariatric clinic Discharge - Sign-Out/Discharge Documenting (check all that apply): Patient Departure - DC Patient Received Moderate/Deep Sedation with Procedure: No - Discharge Plan Condition: Stable Disposition: HOME Patient Education Materials: Abdominal Pain (ED) Forms: *Work Release Referrals: Fan Davis MD [Primary Care Provider] - (1-3 days) Additional Instructions: Follow up with the Bariatric Clinic. Call [facility], [phone]. [address] [facility] Return to the ED if you experience any new or worsening symptoms. - Billing Disposition and Condition Condition: STABLE Disposition: Home - Attestation Statements Document Initiated by Cesiaibenzo: Yes Documenting Scribe: Ramsey Pennington Provider For Whom Christos is Documenting (Include Credential): Attila Joiner MD Scribe Attestation: Ramsey Fall scribed for Attila Joiner MD on 06/07/18 at 0734. Scribe Documentation Reviewed: Yes Provider Attestation: The documentation as recorded by the Ramsey verduzco accurately reflects the service I personally performed and the decisions made by me, Ava Joiner MD Status of Scribe Document: Viewed
[2018-06-06 18:57] VITALS: BP 135/91
== END | disposition home or self-care (01) ==
LOC: ED 13:49
DX: R55 Syncope and collapse (principal); Z87.891 Personal history of nicotine dependence; I25.10 Atherosclerotic heart disease of native coronary artery without angina pectoris; I10 Essential (primary) hypertension; Z95.5 Presence of coronary angioplasty implant and graft; Z98.84 Bariatric surgery status; R10.9 Unspecified abdominal pain
CPT/HCPCS: 36415; 74176; 80053; 83605; 83690; 83735; 84702; 85025; 85610; 86140; 96361; 96374; 99283; J3411